=== PATIENT | male | born 1995 ===

== ENCOUNTER 2017-10-15 17:33 | Emergency (ER) | payer OTHER ==
[2017-10-15 17:57] VITALS: BP 127/77; PULSE 79; RESP 19; TEMP 98.8; O2SAT 99
[2017-10-15] MEDS ORDERED: Iohexol 240 (50 ml) PO ONE (18:38)
--- NOTE | 2017-10-15 18:44 | ED PDOC ---
HPI: Male Pain Time Seen by Provider: 10/15/17 18:13 Chief Complaint (Nursing): Male Genitourinary Chief Complaint (Provider): right groin and testicle pain History Per: Patient History/Exam Limitations: no limitations Onset/Duration Of Symptoms: Days (3) Current Symptoms Are (Timing): Still Present Severity: Moderate Quality Of Discomfort: Sharp Associated Symptoms: Back Pain. denies: Nausea, Vomiting, Diarrhea, Loss Of Appetite Alleviating Factors: None Additional Complaint(s): 22yo male c/o right lower abdominal pain and right testicular pain radiating to the back since sunday evening. Pain sharp, constant, worsening. Denies vomiting/ diarrhea or urinary symptoms of hematuria, penile discharge or dysuria. Past Medical History Reviewed: Historical Data, Nursing Documentation, Vital Signs Vital Signs: Last Vital Signs Temp 98.8 F 10/15/17 17:54 Pulse 79 10/15/17 17:54 Resp 19 10/15/17 17:54 BP 127/77 10/15/17 17:54 Pulse Ox 99 10/15/17 17:54 - Medical History PMH: No Chronic Diseases - Surgical History Surgical History: No Surg Hx - Family History Family History: States: Unknown Family Hx - Living Arrangements Living Arrangements: With Family - Home Medications Home Medications: Ambulatory Orders Medication Instructions Recorded Naproxen [Naprosyn] 500 mg PO BID PRN #14 tablet 06/10/16 - Allergies Allergies/Adverse Reactions: Allergies Allergy/AdvReac Type Severity Reaction Status Date / Time No Known Allergies Allergy Verified 06/10/16 05:55 Review of Systems ROS Statement: Except As Marked, All Systems Reviewed And Found Negative Constitutional: Negative for: Fever, Chills Cardiovascular: Negative for: Chest Pain Respiratory: Negative for: Cough Gastrointestinal: Positive for: Abdominal Pain Genitourinary Male: Positive for: Other (scrotal pain). Negative for: Dysuria, Frequency Musculoskeletal: Negative for: Neck Pain Skin: Negative for: Rash, Lesions, Jaundice Neurological: Negative for: Weakness, Numbness, Headache Psych: Negative for: Anxiety Physical Exam - Reviewed Nursing Documentation Reviewed: Yes Vital Signs Reviewed: Yes - Physical Exam Appears: Positive for: Well, Non-toxic, No Acute Distress Head Exam: Positive for: ATRAUMATIC, NORMAL INSPECTION, NORMOCEPHALIC Skin: Positive for: Normal Color, Warm, DRY Eye Exam: Positive for: EOMI, Normal appearance, PERRL ENT: Positive for: Normal ENT Inspection Neck: Positive for: Normal, Painless ROM Cardiovascular/Chest: Positive for: Regular Rate, Rhythm Respiratory: Positive for: CNT, Normal Breath Sounds Gastrointestinal/Abdominal: Positive for: Soft, Tenderness (R groin/inguinal tenderness) Male Genital Exam: Positive for: scrotum tenderness (R), testicular tenderness ( R) Back: Positive for: Normal Inspection Extremity: Positive for: Normal ROM Neurologic/Psych: Positive for: Alert, Oriented. Negative for: Motor/Sensory Deficits - ECG O2 Sat by Pulse Oximetry: 99 Medical Decision Making Medical Decision Making: workup for scrotal and inguinal pain x3d initiated US testicle and CT abd pelv r/o hernia labs and analgesics ordered remain NPO other than contrast Disposition - Clinical Impression Clinical Impression: Scrotal pain - Disposition Disposition: Transfer of Care Disposition Time: 18:55 Condition: STABLE Patient Signed Over To: Val Hooks Y Handoff Comments: pending imaging, bloodwork, re-eval, consults and diagnosis/ dispo
[2017-10-15] MEDS ORDERED: Iohexol 240 (50 ml) ONE (19:05)
[2017-10-15 19:29] LABS: BASO # 0.1 K/uL (0.0-0.2); BASO % 0.6 % (0.0-2.0); EOS # 0.2 K/uL (0.0-0.7); EOS % 1.8 % (0.0-4.0); HEMOGLOBIN 14.9 g/dL (12.0-18.0); LYMPH # 2.6 K/uL (1.0-4.3); LYMPH % 21.9 % (20.0-40.0); MEAN CELL VOLUME 88.8 fl (80.0-94.0); MEAN CORPUSCULAR HEMOGLOBIN 30.1 pg (27.0-31.0); MEAN CORPUSCULAR HGB CONC 33.8 g/dL (33.0-37.0); MEAN PLATELET VOLUME 8.6 fl (7.2-11.7); MONO # 0.9 K/uL (0.0-0.8); MONO % 7.7 % (0.0-10.0); NEUT # 8.1 K/uL (1.8-7.0); NRBC % 0.1 % (0.0-0.0); RBC 4.96 Mil/uL (4.40-5.90); RED CELL DISTRIBUTION WIDTH 13.2 % (11.5-14.5)
--- NOTE | 2017-10-15 19:33 | ED PDOC ---
- Laboratory Results Result Diagrams: 10/15/17 17:10 10/15/17 17:10 - ECG O2 Sat by Pulse Oximetry: 99 Medical Decision Making Medical Decision Making: Time: 1899 --Patient endorsed from Dr. Scott Sorensen III. Pending radiographic studies. Time: 2030 --US testicles FINDINGS: Right testicle: Mildly enlarged compared with the left testicle, measuring 3.2 x 2.7 x 2.9 cm (volume of 12.8 mL). This could be due to mild right orchitis. Flow seen in the right testicle on color and Doppler imaging, with no evidence of torsion. Right epididymis: Appears enlarged, and demonstrates hyperemia on color imaging. Findings are highly suspicious for right epididymitis. Head measures 1.7 x 1.4 cm. Left testicle: Within normal limits in appearance. Measures 3.9 x 1.9 x 2 cm (volume of 7.6 mL). Flow seen in the left testicle on color and Doppler imaging, with no evidence of torsion. Left epididymis: Contains a tiny 3.4 mm simple cyst. Otherwise unremarkable in appearance. Head measures 8.4 x 7.6 mm. Hydrocoele: Small to moderate right hydrocele is seen. This appears mildly complex. It contains scattered internal septations. Varicocele: None seen. IMPRESSION: Findings highly suspicious for right epididymitis. There may also be mild right orchitis. Small to moderate right hydrocele, which appears mildly complex/septate. An infected hydrocele is not excluded. Time: 2201 --CT ABD/pelvis FINDINGS: LUNG BASES: No significant abnormality seen. ABDOMEN: LIVER: Mild fatty infiltration of the liver. GALLBLADDER AND BILE DUCTS: No CT evidence of acute cholecystitis. No evidence of significant biliary ductal dilatation. PANCREAS: No CT evidence of acute pancreatitis. SPLEEN: No acute abnormality of the spleen identified. ADRENALS: No acute abnormality of the adrenal glands identified. KIDNEYS AND URETERS: No acute abnormality of the kidneys identified. No evidence of significant hydrouereteronephrosis. STOMACH AND BOWEL: No acute abnormality of the stomach, small bowel or colon identified. No evidence of bowel obstruction. PELVIS: APPENDIX: Appendix is seen, and is within normal limits in appearance. BLADDER: No acute abnormality of the bladder identified. REPRODUCTIVE: Increased enhancement of the right spermatic cord compared with the left. Small to moderate right hydrocele is seen. No evidence of scrotal gas. Prostate gland is mildly enlarged. ABDOMEN and PELVIS: INTRAPERITONEAL SPACE: No evidence of free intraperitoneal air or fluid. BONES/JOINTS: No acute fractures or other acute bony abnormality noted. SOFT TISSUES: Small umbilical hernia, containing only fat. VASCULATURE: No evidence of abdominal aortic aneurysm. No evidence of periaortic hemorrhage. LYMPH NODES: No evidence of diffuse lymphadenopathy. IMPRESSION: - Small to moderate right hydrocele. Asymmetric enhancement of the right spermatic cord compared with the left. Findings are suspicious for underlying right scrotal pathology, such as right epididymitis. Scrotal ultrasound would be helpful for further evaluation. - See above for remaining findings [id number] Discussed results of imaging with patient, who verbalizes understanding. pt instructed to take po abx at home and follow up with urologist. Patient is stable for discharge home. Scribe Attestation: Documented by Rebecca Blackwell, acting as a scribe for Val Hooks MD. Provider Scribe Attestation: All medical record entries made by the Scribe were at my direction and personally dictated by me. I have reviewed the chart and agree that the record accurately reflects my personal performance of the history, physical exam, medical decision making, and the department course for this patient. I have also personally directed, reviewed, and agree with the discharge instructions and disposition. Disposition Counseled Patient/Family Regarding: Studies Performed, Diagnosis, Need For Followup - Clinical Impression Clinical Impression: Scrotal pain, Acute epididymitis - POA Present On Arrival: None - Disposition Referrals: Scott Lozada Jr., MD [Staff Provider] - Disposition: Routine/Home Disposition Time: 22:15 Condition: IMPROVED Additional Instructions: follow up with urologist in 1-2 days return to the ED with any worsening or concerning symptoms Prescriptions: Doxycycline Hyclate 100 mg PO BID #20 capsule Instructions: Epididymitis (DC) Forms: [facility] (Nepali)
[2017-10-15 19:56] LABS: URINE BILIRUBIN NEGATIVE (NEGATIVE); URINE BLOOD NEGATIVE (NEGATIVE); URINE CLARITY SLIGHTY-CLOUDY (Clear); URINE COLOR YELLOW (YELLOW); URINE GLUCOSE (UA) NEG (Normal); URINE LEUKOCYTE ESTERASE NEG Leu/uL (Negative); URINE PROTEIN NEGATIVE (NEGATIVE)
[2017-10-15 20:09] LABS: ALB/GLOB RATIO 1.2 (1.0-2.1); ALBUMIN 4.3 g/dL (3.5-5.0); ALT/SGPT 22 U/L (21-72); AST/SGOT 28 U/L (17-59); BLOOD UREA NITROGEN 13 mg/dl (9-20); CALCIUM 9.6 mg/dL (8.4-10.2); GFR AFRICAN-AMERICAN > 60; GFR NON-AFRICAN AMERICAN > 60; LIPASE 37 U/L (23-300)
--- NOTE | 2017-10-15 20:31 | US ---
EXAM: US Scrotum EXAM DATE/TIME: 10/15/2017 6:37 PM CLINICAL HISTORY: 22 years old, male; Pain and signs and symptoms; Swelling, testicles or scrotum; Scrotum pain; Additional info: R testicular pain/swelling TECHNIQUE: Real-time ultrasound of the scrotum with color Doppler and image documentation. COMPARISON: No relevant prior studies available. FINDINGS: Right testicle: Mildly enlarged compared with the left testicle, measuring 3.2 x 2.7 x 2.9 cm (volume of 12.8 mL). This could be due to mild right orchitis. Flow seen in the right testicle on color and Doppler imaging, with no evidence of torsion. Right epididymis: Appears enlarged, and demonstrates hyperemia on color imaging. Findings are highly suspicious for right epididymitis. Head measures 1.7 x 1.4 cm. Left testicle: Within normal limits in appearance. Measures 3.9 x 1.9 x 2 cm (volume of 7.6 mL). Flow seen in the left testicle on color and Doppler imaging, with no evidence of torsion. Left epididymis: Contains a tiny 3.4 mm simple cyst. Otherwise unremarkable in appearance. Head measures 8.4 x 7.6 mm. Hydrocoele: Small to moderate right hydrocele is seen. This appears mildly complex. It contains scattered internal septations. Varicocele: None seen. IMPRESSION: Findings highly suspicious for right epididymitis. There may also be mild right orchitis. Small to moderate right hydrocele, which appears mildly complex/septate. An infected hydrocele is not excluded. See above for remaining findings. No evidence of testicular torsion.
[2017-10-15] MEDS ORDERED: Sodium Chloride 0.9% 100 ML ONE (21:06)
[2017-10-15] MEDS ORDERED: Iohexol 300 100 ML IJ ONE (21:06)
--- NOTE | 2017-10-15 22:03 | CT ---
EXAM: CT Abdomen and Pelvis With Intravenous Contrast EXAM DATE/TIME: 10/15/2017 6:38 PM CLINICAL HISTORY: 22 years old, male; Pain; Abdominal pain; Localized; Other: Lower right, rt testicular pain; Additional info: Rlq/inguinal pain/testicular swelling TECHNIQUE: Axial computed tomography images of the abdomen and pelvis with intravenous contrast. All CT scans at this facility use one or more dose reduction techniques, viz.: automated exposure control; ma/kV adjustment per patient size (including targeted exams where dose is matched to indication; i.e. head); or iterative reconstruction technique. Coronal and sagittal reformatted images were created and reviewed. CONTRAST: 90 mL of [id number] administered intravenously. COMPARISON: No relevant prior studies available. FINDINGS: LUNG BASES: No significant abnormality seen. ABDOMEN: LIVER: Mild fatty infiltration of the liver. GALLBLADDER AND BILE DUCTS: No CT evidence of acute cholecystitis. No evidence of significant biliary ductal dilatation. PANCREAS: No CT evidence of acute pancreatitis. SPLEEN: No acute abnormality of the spleen identified. ADRENALS: No acute abnormality of the adrenal glands identified. KIDNEYS AND URETERS: No acute abnormality of the kidneys identified. No evidence of significant hydrouereteronephrosis. STOMACH AND BOWEL: No acute abnormality of the stomach, small bowel or colon identified. No evidence of bowel obstruction. PELVIS: APPENDIX: Appendix is seen, and is within normal limits in appearance. BLADDER: No acute abnormality of the bladder identified. REPRODUCTIVE: Increased enhancement of the right spermatic cord compared with the left. Small to moderate right hydrocele is seen. No evidence of scrotal gas. Prostate gland is mildly enlarged. ABDOMEN and PELVIS: INTRAPERITONEAL SPACE: No evidence of free intraperitoneal air or fluid. BONES/JOINTS: No acute fractures or other acute bony abnormality noted. SOFT TISSUES: Small umbilical hernia, containing only fat. VASCULATURE: No evidence of abdominal aortic aneurysm. No evidence of periaortic hemorrhage. LYMPH NODES: No evidence of diffuse lymphadenopathy. IMPRESSION: - Small to moderate right hydrocele. Asymmetric enhancement of the right spermatic cord compared with the left. Findings are suspicious for underlying right scrotal pathology, such as right epididymitis. Scrotal ultrasound would be helpful for further evaluation. - See above for remaining findings.
[2017-10-15] MEDS ORDERED: cefTRIAXone (Rocephin) 250 mg Inj IM ONE (22:57)
[2017-10-15] MEDS ORDERED: cefTRIAXone (Rocephin) 250 mg Inj ONE ×2 (23:10→23:15)
== END 2017-10-15 23:28 | disposition home or self-care (01) ==
LOC: H.ER 17:33
DX: N45.3 Epididymo-orchitis (principal)
CPT/HCPCS: 74177; 80053; 81003; 83690; 85025; 93975; 96372; 96374; 99283; J0696; J1885; Q9966; Q9967